=== PATIENT | male | born 1990 | race Caucasian/White ===

== ENCOUNTER 2021-04-16 11:31 | Outpatient (REF) | payer SELFPAY ==
[2021-04-16 19:46] LABS: ALT 33 U/L (16-63); AST 16 U/L (15-37); Albumin 3.8 g/dL (3.4-5.0); Alkaline Phosphatase 68 U/L (46-116); Anion Gap 9.1 mmol/L (3-11); BUN 11 mg/dL (7-18); Bilirubin, Total 0.1 mg/dL (0.2-1.0); CO2 26.9 mmol/L (21.0-32.0); CREATININE 0.7 mg/dL (0.70-1.30); Calcium 9.1 mg/dL (8.5-10.1); Calculated LDL 94 mg/dL (<100); Chloride 107 mmol/L (98-107); Cholesterol 168 mg/dL (<200); Glucose 92 mg/dL (74-106); HDL Cholesterol 64 mg/dL (40-60); Potassium 4.4 mmol/L (3.5-5.1); Sodium 143 mmol/L (136-145); Total Protein 6.8 g/dL (6.4-8.2); Triglyceride 53 mg/dL (<150)
[2021-04-16 19:59] LABS: Uric Acid 5.7 mg/dL (3.5-7.2)
[2021-04-20 12:33] LABS: Syphilis Serology (RPR) Negative (Negative)
[2021-04-20 15:19] LABS: Chlamydia Result Negative (Negative); GC Result Negative (Negative)
[2021-04-20 16:36] LABS: HIV-1/2 Ag & Ab Screen Negative (Negative)
== END 2021-04-16 11:32 | disposition home or self-care (01) ==
LOC: NCHCN 11:31
PROVIDERS: Visit Provider Nurse Practitioner Family
DX: Z11.3 Encounter for screening for infections with a predominantly sexual mode of transmission (principal); Z13.828 Encounter for screening for other musculoskeletal disorder; Z00.00 Encounter for general adult medical examination without abnormal findings; Z11.59 Encounter for screening for other viral diseases; Z11.4 Encounter for screening for human immunodeficiency virus [HIV]
CPT/HCPCS: 80053; 80061; 86803; 87389; 87491; 87591; 84550; 86592